=== PATIENT | female | born 1970 | race African-American/Black ===

== ENCOUNTER 2018-05-13 07:16 | Emergency (ER) | payer MEDICAID ==
[~2018-05-13] VITALS: Ht 157.5 cm; Wt 97.0 kg
[2018-05-13] MEDS ORDERED: IBUPROFEN 600MG TABLET PO ONE (09:30)
[2018-05-13 11:33] VITALS: BP 112/64
== END 2018-05-13 11:34 | disposition home or self-care (01) ==
LOC: ER 08:07
DX: I88.9 Nonspecific lymphadenitis, unspecified (principal)
CPT/HCPCS: 70360; 99284

== ENCOUNTER 2019-08-18 05:14 | Emergency (ER) | payer MEDICAID, OTHER ==
[~2019-08-18] VITALS: Ht 157.5 cm; Wt 92.0 kg
[2019-08-18 07:30] VITALS: BP 120/76
== END 2019-08-18 07:31 | disposition home or self-care (01) ==
LOC: ER 05:14
DX: M79.671 Pain in right foot (principal); E11.9 Type 2 diabetes mellitus without complications; I10 Essential (primary) hypertension
CPT/HCPCS: 73630; 99283

== ENCOUNTER 2020-01-17 05:58 | Emergency (ER) | payer MEDICAID ==
[~2020-01-17] VITALS: Ht 157.5 cm; Wt 100.0 kg
[2020-01-17 06:46] VITALS: BP 110/72
[2020-01-17 08:22] LABS: CLARITY URINE CLEAR (CLEAR); COLOR URINE YELLOW (YELLOW); KETONES URINE NEGATIVE (NEGATIVE); LEUKOCYTE ESTERASE URINE NEGATIVE (NEGATIVE); NITRITE URINE NEGATIVE (NEGATIVE); OCCULT BLOOD URINE NEGATIVE (NEGATIVE); PH URINE 5.5 (4.5-8.0); PROTEIN URINE NEGATIVE (NEGATIVE); SPECIFIC GRAVITY URINE 1.012 (1.005-1.030); UROBILINOGEN URINE 0.2 E.U./dL (0.2-1.0)
== END 2020-01-17 08:35 | disposition home or self-care (01) ==
LOC: ER 06:19
DX: N90.4 Leukoplakia of vulva (principal); I10 Essential (primary) hypertension; E11.9 Type 2 diabetes mellitus without complications; E78.00 Pure hypercholesterolemia, unspecified
CPT/HCPCS: 81003; 81025; 99283

== ENCOUNTER 2020-11-07 06:03 | Emergency (ER) | payer MEDICAID ==
[~2020-11-07] VITALS: Ht 157.5 cm; Wt 93.0 kg
[2020-11-07] MEDS ORDERED: IBUPROFEN 600MG TABLET PO ONE (07:45)
[2020-11-07 07:59] VITALS: BP 112/85
== END 2020-11-07 08:18 | disposition home or self-care (01) ==
LOC: ER 06:03
DX: H60.92 Unspecified otitis externa, left ear (principal); E11.9 Type 2 diabetes mellitus without complications; I10 Essential (primary) hypertension; E78.00 Pure hypercholesterolemia, unspecified
CPT/HCPCS: 99283